=== PATIENT | male | born 1965 | race Caucasian/White ===

== ENCOUNTER 2018-03-08 17:08 | Emergency (ER) | payer OTHER ==
[2018-03-08] MEDS ORDERED: Adacel Vial IM ONE ×2 (17:45→18:04)
[2018-03-08] MEDS ORDERED: Marcaine 0.5% SDV 10 ML IJ ONE (17:45)
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
[2018-03-08] MEDS ORDERED: Marcaine 0.5% SDV 10 ML ONE (18:05)
[2018-03-08] MEDS ORDERED: BACIGUENT PACKET ONE (19:41)
[2018-03-08 20:09] VITALS: BP 158/100; PULSE 65; O2SAT 96
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
== END 2018-03-08 20:09 | disposition home or self-care (01) ==
LOC: ED 17:08
PROC: 0HQGXZZ Repair Left Hand Skin, External Approach (ICD-10-PCS; principal; 2018-03-08)
DX: S61.412A Laceration without foreign body of left hand, initial encounter (principal); W26.0XXA Contact with knife, initial encounter; Y93.G3 Activity, cooking and baking; Y92.000 Kitchen of unspecified non-institutional (private) residence as the place of occurrence of the external cause
CPT/HCPCS: 12001; 73130; 90471; 90715; 99284; A9270-GY

== ENCOUNTER 2025-05-02 05:50 | Day surgery (SDC) | payer OTHER ==
[2025-05-02 06:20] VITALS: RESP 16
[2025-05-02] MEDS: Lactated Ringers 1,000 ML IV SCH (06:22)
[2025-05-02 06:47] LABS: Calcium 9.2 mg/dL (8.4-10.2); Carbon Dioxide 22.0 mmol/L (22-30); Creatinine 1 1.1 mg/dL (0.66-1.25); EST GLOMERULAR FILTRATION RATE 76.9 ML/MIN; Glucose 109.0 mg/dL (74-106); Potassium 4.0 mmol/L (3.5-5.1)
[2025-05-02] MEDS ORDERED: propofoL IV ONE ×2 (07:25→07:54)
[2025-05-02] MEDS ORDERED: Xylocaine-Mpf 2% 5 Ml Vial ONE (07:25)
[2025-05-02 08:29] VITALS: TEMP 98.9
[2025-05-02 08:43] VITALS: BP 153/89; PULSE 57; O2SAT 100
--- NOTE | 2025-05-03 09:46 | OP ---
SURGERY DATE/TIME: 05/02/2025 [id number] PREOPERATIVE DIAGNOSIS: Screening colonoscopy. POSTOPERATIVE DIAGNOSES: 1) Normal colon. 2) Diverticulosis. PROCEDURE PERFORMED: Colonoscopy. ANESTHESIA: MAC by Yvan Hazel CRNA. ESTIMATED BLOOD LOSS: None. SPECIMENS: None. DESCRIPTION OF PROCEDURE AND FINDINGS: After informed written consent was obtained, the patient was taken to the endoscopy suite. He was placed in the left lateral decubitus position, and anesthesia was titrated to the desired level of consciousness. Digital rectal exam showed normal sphincter tone and no internal lesions. The scope was inserted in the rectum, and sequentially the entire colonic mucosa was traversed. The level of the cecum was reached and verified with direct visualization of the ileocecal valve. Upon withdrawal, careful mucosal inspection revealed scattered diverticula but no other mucosal abnormalities. Prior to withdrawal, retroflexion showed no internal lesions. Scope was removed. Patient was transferred to the recovery room in good condition.
== END 2025-05-02 08:55 | disposition home or self-care (01) ==
LOC: SDC 05:50
PROVIDERS: ATTEND Family Medicine
DX: Z12.11 Encounter for screening for malignant neoplasm of colon (principal); K57.30 Diverticulosis of large intestine without perforation or abscess without bleeding; I10 Essential (primary) hypertension